=== PATIENT | female | born 1940 | race Caucasian/White ===

== ENCOUNTER 2018-05-09 07:55 | Day surgery (SDC) | payer MEDICARE, OTHER ==
[2018-05-09] MEDS ORDERED: Sodium Chloride 0.9% 5 ML Syringe FLUSH PRN (08:00)
[2018-05-09] MEDS ORDERED: Propofol 200 MG/20 ML SDV ONE (08:11)
[2018-05-09] MEDS ORDERED: Midazolam 1 MG/ML 2 ML SDV ONE (08:11)
[2018-05-09] MEDS: Lactated Ringers 1,000 ML IV SCH (08:34)
[2018-05-09] MEDS ORDERED: Propofol 200 MG/20 ML SDV IV ONE (09:42)
[2018-05-09] MEDS ORDERED: Midazolam 1 MG/ML 2 ML SDV IV ONE (09:42)
--- NOTE | 2018-05-09 10:58 | PCM.PRNOTE ---
- Free Text/Narrative Note: PROCEDURE PERFORMED: Colonoscopy PRE-PROCEDURE DIAGNOSIS/INDICATION FOR PROCEDURE: +FIT, history of inadequate colonoscopy >10 years ago CONSENT: Informed consent was obtained prior to the procedure after discussion of the risks (including pain, bleeding, infection, perforation, missed polyps, adverse reaction to anesthesia, cardiovascular event), benefits and alternatives and expected outcomes. The patient expressed understanding and wished to proceed. Verbal consent given and consent form signed. PROCEDURAL PAUSE: Completed SEDATION: Per anesthesia DESCRIPTION OF PROCEDURE: Patient was placed in the left lateral decubitus position. After adequate sedation and anesthetic was administered, a rectal exam was performed revealing external hemorrhoids. A lubricated Olympus Video Colonoscope was inserted into the rectum and air insufflation was performed. The colonoscope was advanced through the rectum, sigmoid, descending, transverse, and ascending colon without difficulties. The cecum was reached and the ileocecal valve as well as the appendiceal orifice were identified and pictorially documented. After adequate visualization of the cecum, the scope was withdrawn, giving 360-degree views of the colonic mucosa and retroflexion was performed in the rectum with the following findings noted: Ileocecal valve: Normal Cecum: Normal Ascending colon: Normal Hepatic flexure: Normal Transverse colon: 3mm polyp removed with cold forceps with subsequent adequate hemostasis Splenic flexure: Normal Descending colon: Normal Sigmoid colon: Normal Rectum: 3mm base pedunculated tag at the anal verge removed with hot snare with subsequent adequate hemostasis; Moderate internal hemorrhoids. The scope was straightened, air suction performed, and the scope withdrawn without complication. Preparation adequacy good. IMPRESSION: Colonoscopy performed revealing one colon polyp and one anal tag, pathology now pending. Also noted internal and external hemorrhoids. PLAN: Will contact the patient when pathology results received with recommendation for repeat colonoscopy. Encourage increased fiber diet and bowel regimen to ensure 1-2 soft bowel movements per day.
[2018-05-09] MEDS: Ondansetron 4 MG/2 ML SDV IVPUSH ONE (11:54)
== END 2018-05-09 11:45 | disposition home or self-care (01) ==
LOC: KA.SDS 07:55
PROVIDERS: ATTEND Family Medicine
DX: R19.5 Other fecal abnormalities (principal); K63.5 Polyp of colon; K62.1 Rectal polyp; K64.8 Other hemorrhoids; K64.4 Residual hemorrhoidal skin tags; E78.00 Pure hypercholesterolemia, unspecified; Z79.899 Other long term (current) drug therapy; Z86.010 Personal history of colon polyps
CPT/HCPCS: 00812; J2250; J2704; J7120

== ENCOUNTER 2020-09-12 14:52 | Emergency (ER) | payer MEDICARE, OTHER ==
--- NOTE | 2020-09-12 15:18 | EDM.PDOC ---
ED HPI GENERAL MEDICAL PROBLEM - General Stated Complaint: CHEST PAIN/SOB Time Seen by Provider: 09/12/20 15:05 Source of Information: Reports: Patient History Limitations: Reports: No Limitations - History of Present Illness INITIAL COMMENTS - FREE TEXT/NARRATIVE: Patient presents with shortness of breath and mild chest pressure for 4 days. She has had this a few times before and says something showed up on a chest CT that they are still evaluating. She usually is treated with antibiotics that help. She's had 3 covid tests all negative. Most recent 3 weeks ago. 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 - Infectious Disease History Infectious Disease History: Reports: Chicken Pox, Measles, Mumps, Shingles - Past Surgical History Head Surgeries/Procedures: Reports: None HEENT Surgical History: Reports: Cataract Surgery Endocrine Surgical History: Reports: None Social & Family History - Family History Family Medical History: No Pertinent Family History - Caffeine Use Caffeine Use: Reports: Coffee, Tea ED ROS GENERAL - Review of Systems Review Of Systems: See Below Constitutional: Denies: Fever, Chills, Malaise, Weakness HEENT: Denies: Ear Pain, Throat Pain, Vision Change Respiratory: Reports: Shortness of Breath. Denies: Cough Cardiovascular: Denies: Chest Pain, Lightheadedness, Syncope GI/Abdominal: Denies: Abdominal Pain, Diarrhea, Vomiting : Denies: Dysuria, Flank Pain Musculoskeletal: Denies: Neck Pain, Shoulder Pain, Arm Pain, Back Pain, Hand Pain Skin: Denies: Cyanosis, Jaundice, Mottled, Pallor, Diaphoresis Neurological: Denies: Confusion, Dizziness, Headache, Seizure, Syncope, Trouble Speaking, Difficulty Walking Psychiatric: Denies: Agitation, Anxiety, Confusion ED EXAM, GENERAL - Physical Exam Exam: See Below Exam Limited By: No Limitations General Appearance: Alert, WD/WN, No Apparent Distress Eye Exam: Bilateral Eye: EOMI, Normal Inspection, PERRL Ears: Normal External Exam, Hearing Grossly Normal Nose: Normal Inspection, No Blood Throat/Mouth: Normal Inspection, Normal Lips, Normal Voice, No Airway Compromise Head: Atraumatic, Normocephalic Neck: Normal Inspection, Supple, Full Range of Motion Respiratory/Chest: No Respiratory Distress, Lungs Clear, Normal Breath Sounds, No Accessory Muscle Use Cardiovascular: Regular Rate, Rhythm, No Murmur GI/Abdominal: Normal Bowel Sounds, Soft, Non-Tender, No Organomegaly, No Distention Back Exam: Normal Inspection, Full Range of Motion. No: CVA Tenderness (L), CVA Tenderness (R) Extremities: Normal Inspection, Normal Range of Motion, Non-Tender Neurological: Alert, Oriented, Normal Cognition, No Motor/Sensory Deficits Psychiatric: Normal Affect, Normal Mood Skin Exam: Warm, Dry, Intact, Normal Color, No Rash Course - Vital Signs Last Recorded V/S: Last Vital Signs Temp 96.4 F L 09/12/20 15:00 Pulse 73 09/12/20 15:00 Resp 25 H 09/12/20 15:00 BP 162/78 H 09/12/20 15:00 Pulse Ox 95 09/12/20 15:00 - Orders/Labs/Meds Orders: Active Orders 24 hr Category Date Time Status EKG Documentation Completion [RC] ASDIRECTED Care 09/12/20 15:37 Active EKG 12 Lead [EK] Stat Ther 09/12/20 15:37 Ordered Labs: Laboratory Tests 09/12/20 09/12/20 Range/Units 15:13 15:13 WBC 6.59 (5.00-10.00) 10^3/uL RBC 4.62 (3.80-5.50) 10^6/uL Hgb 13.6 (12.0-16.0) g/dL Hct 40.7 (37.0-47.0) % MCV 88.1 (82.0-92.0) fL MCH 29.4 (27.0-31.0) pg MCHC 33.4 (32.0-36.0) g/dL RDW 13.2 (11.5-14.5) % Plt Count 244 (150-400) 10^3/uL MPV 9.0 (7.4-10.4) fL Immature Gran % (Auto) 0.2 (0.0-5.0) % Neut % (Auto) 53.7 (50.0-70.0) % Lymph % (Auto) 33.5 (20.0-40.0) % [place] % (Auto) 6.8 (2.0-8.0) % Eos % (Auto) 4.9 H (1.0-3.0) % Baso % (Auto) 0.9 (0.0-1.0) % Neut # (Auto) 3.54 (2.50-7.00) 10^3/uL Lymph # (Auto) 2.21 (1.00-4.00) 10^3/uL [place] # (Auto) 0.45 (0.10-0.80) 10^3/uL Eos # (Auto) 0.32 H (0.10-0.30) 10^3/uL Baso # (Auto) 0.06 (0.00-0.10) 10^3/uL Immature Gran # (Auto) 0.01 (0.00-0.50) 10^3/uL Sodium 134 L (136-145) mmol/L Potassium 4.0 (3.3-5.3) mmol/L Chloride 98 (98-115) mmol/L Carbon Dioxide 26.3 (21.0-32.0) mmol/L Anion Gap 13.7 (5-15) mmol/L BUN 11 (6-25) mg/dL Creatinine 0.66 (0.51-1.17) mg/dL Est Cr Clr Drug Dosing 54.12 mL/min Estimated GFR (MDRD) > 60 mL/min Glucose 88 (75 - 99) mg/dL Calcium 9.2 (8.7-10.3) mg/dL Troponin I 0.05 (0.00-0.070) ng/mL - Re-Assessments/Exams Free Text/Narrative Re-Assessment/Exam: 09/12/20 16:46 CXR, EKG and labs all good. Discussed case with her PCP Dr. Avendaño who reviewed the course of this increasingly persistent problem. Last time she was treated with doxycycline and prednisone but she advised just prednisone 40 mg for 5 days and recheck with her on Wednesday or Wednesday. She will likely consult pulmonology too. Discussed findings and plan with patient and she is discharged to home in stable condition. Departure - Departure Time of Disposition: 16:43 Disposition: Home, Self-Care 01 Condition: Good Clinical Impression: Cough Dyspnea Qualifiers: Dyspnea type: shortness of breath Qualified Code(s): R06.02 - Shortness of breath - Discharge Information Referrals: Priscilla Jimenez PA-C [Primary Care Provider] - Additional Instructions: Drink 8 cups of water daily. Take the prednisone as directed. Follow up with Dr. Avendaño on Wednesday or Wednesday. The clinic will call you tomorrow with time. If you don't hear from them you can call. Sepsis Event Note (ED) - Focused Exam Vital Signs: Vital Signs Temp Pulse Resp BP Pulse Ox 09/12/20 15:00 96.4 F L 73 25 H 162/78 H 95 - My Orders Last 24 Hours: My Active Orders 09/12/20 15:37 EKG Documentation Completion [RC] ASDIRECTED EKG 12 Lead [EK] Stat - Assessment/Plan Last 24 Hours: My Active Orders 09/12/20 15:37 EKG Documentation Completion [RC] ASDIRECTED EKG 12 Lead [EK] Stat
[2020-09-12 15:51] LABS: ANION GAP 13.7 mmol/L (5-15); CHLORIDE,CL 98 mmol/L (98-115); SODIUM,NA 134 mmol/L (136-145)
--- NOTE | 2020-09-12 16:12 | CR ---
[id number] RAD/RAD Chest PA or AP 1V EXAM: FRONTAL CHEST INDICATION: DYSPNEA. COMPARISON: None. DISCUSSION: There is cardiomegaly with borderline central vascular congestion. Hyperinflation suggests underlying COPD. Mild linear scarring or atelectasis in the lung bases. No effusions. IMPRESSION: 1. Cardiomegaly with borderline congestive heart failure. Edilberto Mart MD 09/12/20 2001 Thank you for allowing us to participate in the care of your patient.
== END 2020-09-12 16:58 | disposition home or self-care (01) ==
LOC: KA.ED 14:52
DX: R06.02 Shortness of breath (principal); R05 Cough; Z79.899 Other long term (current) drug therapy
CPT/HCPCS: 71045; 80048; 84484; 85025; 93005; 99284; 99285-25